=== PATIENT | male | born 1935 | race Caucasian/White ===

== ENCOUNTER 2023-11-07 07:51 | Emergency (ER) | payer MEDICARE, OTHER ==
[2023-11-07 08:11] VITALS: O2SAT 99
--- NOTE | 2023-11-07 08:42 | XRAY Report ---
PROCEDURE: Chest 2 View X-Ray INDICATIONS: Cough TECHNIQUE: 2 views of the chest were acquired. COMPARISON: None. FINDINGS: Surgical changes and devices: None. Lungs and pleura: No pleural effusions or pneumothorax. Left basal patchy opacity may represent atel ectasis, aspiration or pneumonia in the proper clinical setting. Mediastinum: Mediastinal contours appear normal. Heart size is normal. Aortic arch is calcified i ndicating atherosclerosis. Bones and chest wall: No suspicious bony lesions. Overlying soft tissues appear unremarkable. IMPRESSION: Left basal patchy opacity may represent atelectasis, aspiration or pneumonia in the proper clinical s etting. Reviewed by: Jeannie Sandhu MD on 11/07/2023 8:41 AM PST Approved by: Jeannie Sandhu MD on 11/07/2023 8:41 AM PST Station ID: [id number]
[2023-11-07 09:13] LABS: B. PARAPERTUSSIS- RESP PCR PAN NOT DETECTED; B. PERTUSSIS- RESP PCR PANEL NOT DETECTED; C. PNEUMONIAE- RESP PCR PANEL NOT DETECTED; CORONAVIRUS 229E-RESP PCR NOT DETECTED; CORONAVIRUS HKU1-RESP PCR NOT DETECTED; CORONAVIRUS NL63-RESP PCR NOT DETECTED; CORONAVIRUS OC43-RESP PCR NOT DETECTED; HUMAN METAPNEUMOVIRUS NOT DETECTED; INFLUENZA A- RESP PCR PANEL NOT DETECTED; INFLUENZA B - RESP PCR PANEL NOT DETECTED; M. PNEUMONIAE- RESP PCR PANEL NOT DETECTED; PARAINFLUENZA VIRUS 1 NOT DETECTED; PARAINFLUENZA VIRUS 2 NOT DETECTED; PARAINFLUENZA VIRUS 3 NOT DETECTED; PARAINFLUENZA VIRUS 4 NOT DETECTED; RHINOVIRUS/ENTEROVIRUS NOT DETECTED; RSV- RESP PCR PANEL NOT DETECTED; SARS-CoV-2 -RESP PCR PANEL NOT DETECTED
--- NOTE | 2023-11-07 12:06 | ED Physician Documentation ---
History of Present Illness - Stated complaint Stated Complaint: COUGH - Chief complaint Chief Complaint: Resp - History obtained from History obtained from: Patient - History of Present Illness Timing: How many days ago (4) Pain level max: 0 Pain level now: 0 - Additonal information Additional information: 88-year-old male presents to the emergency department with a cough for 4 days. No fevers. No chills. He is bringing up phlegm. He states similar to prior episodes of pneumonia. Does not smoke. No history of lung disease. Does not use inhalers. Is not short of breath. Has not taken a COVID test. Nothing makes it better or worse. No chest pain. No abdominal pain. No nausea, vomiting, diarrhea. Review of Systems Constitutional: denies: Fever, Chills GI: denies: Vomiting, Diarrhea Skin: denies: Rash PD PAST MEDICAL HISTORY - Past Medical History Past Medical History: Yes Cardiovascular: Hypertension, High cholesterol - Past Surgical History Past Surgical History: Yes General: Cholecystectomy - Present Medications Home Medications: Ambulatory Orders Medication Instructions Recorded Confirmed Amox/Clav 875/125 [Augmentin] 1 tab PO Q12H #20 tablet 11/07/23 Azithromycin [Zithromax] 0 mg PO DAILY #6 tablet 11/07/23 - Allergies Allergies/Adverse Reactions: Allergies Allergy/AdvReac Type Severity Reaction Status Date / Time No Known Drug Allergies Allergy Verified 11/07/23 08:10 - Social History Does the pt smoke?: No Smoking Status: Never smoker PD ED PE NORMAL - Vitals Vital signs reviewed: Yes - General General: Alert and oriented X 3, No acute distress - HEENT HEENT: PERRL, Ears normal, Moist mucous membranes - Neck Neck: Supple, no meningeal sign - Cardiac Cardiac: RRR, Strong equal pulses - Respiratory Respiratory: No respiratory distress, Clear bilaterally - Abdomen Abdomen: Soft, Non tender, Non distended - Derm Derm: Warm and dry - Extremities Extremities: No edema, No calf tenderness / cord - Neuro Neuro: Alert and oriented X 3 - Psych Psych: Normal mood, Normal affect Results - Vitals Vitals: Vital Signs - 24 hr 11/07/23 08:08 Temperature 36.5 C Heart Rate 72 Respiratory 15 Rate Blood Pressure 126/81 H O2 Saturation 99 - Labs Labs: Laboratory Tests 11/07/23 08:14 Nasal Adenovirus (PCR) NOT DETECTED Nasal B. parapertussis DNA (PCR) NOT DETECTED Nasal Coronavir 229E PCR NOT DETECTED Nasal Coronavir HKU1 PCR NOT DETECTED Nasal Coronavir NL63 PCR NOT DETECTED Nasal Coronavir OC43 PCR NOT DETECTED Nasal Enterovir/Rhinovir PCR NOT DETECTED Nasal Influenza B PCR NOT DETECTED Nasal Influenza A PCR NOT DETECTED Nasal Parainfluen 1 PCR NOT DETECTED Nasal Parainfluen 2 PCR NOT DETECTED Nasal Parainfluen 3 PCR NOT DETECTED Nasal Parainfluen 4 PCR NOT DETECTED Nasal RSV (PCR) NOT DETECTED Nasal B.pertussis DNA PCR NOT DETECTED Nasal C.pneumoniae (PCR) NOT DETECTED [place] Human Metapneumo PCR NOT DETECTED Nasal M.pneumoniae (PCR) NOT DETECTED Nasal SARS-CoV-2 (PCR) NOT DETECTED - Rads (name of study) Chest x-ray Relevant Findings:: Final report received, See rad report PD Medical Decision Making - ED course Complexity details: reviewed results, re-evaluated patient, considered differential, d/w patient ED course: 88-year-old male with a possible left basilar infiltrate on chest x-ray. Discussed risk and benefits of antibiotics versus watchful waiting as he is not having fevers, difficulty breathing or other symptoms. Discussed the risk of C. difficile colitis. Patient states that he would like to try the antibiotics. Will place him on antibiotics. Patient is well-appearing, nontoxic. Afebrile. No evidence of sepsis. No hypoxia. No respiratory distress. Patient counseled regarding signs and symptoms for which I believe and urgent re- evaluation would be necessary. Patient with good understanding of and agreement to plan and is comfortable going home at this time This document was made in part using voice recognition software. While efforts are made to proofread this document, sound alike and grammatical errors may occur. Departure - Departure Disposition: 01 Home, Self Care Clinical Impression: Pneumonia Qualifiers: Pneumonia type: due to unspecified organism Laterality: left Lung location: lower lobe of lung Qualified Code(s): J18.9 - Pneumonia, unspecified organism Condition: Good Instructions: ED Pneumonia Adult Follow-Up: your,doctor in 1 week [Other] Prescriptions: Amox/Clav 875/125 [Augmentin] 1 tab PO Q12H #20 tablet Azithromycin [Zithromax] 0 mg PO DAILY #6 tablet Comments: Your prescriptions were sent to [facility] [place] in [place]. As we discussed there may be an early pneumonia in your left lung base. We discussed potentially watching and waiting, but you have elected antibiotic therapy at this time. As we discussed there are risks of antibiotic therapy including C. difficile colitis, diarrhea, vomiting and antibiotic resistance. Please take all antibiotics until gone. Please return if you worsen. Your respiratory panel including COVID and flu are negative. Forms: PCP List
[2023-11-07 12:39] VITALS: BP 126/84
== END 2023-11-07 12:36 | disposition home or self-care (01) ==
LOC: ED 07:51
DX: J18.9 Pneumonia, unspecified organism (principal); Z20.822 Contact with and (suspected) exposure to COVID-19; I10 Essential (primary) hypertension
CPT/HCPCS: 87633; 99283; 99284

== ENCOUNTER 2024-04-26 08:22 | Emergency (ER) | payer MEDICARE, OTHER ==
[2024-04-26 08:43] VITALS: O2SAT 99
--- NOTE | 2024-04-26 10:48 | XRAY Report ---
PROCEDURE: Pelvis 1-2V INDICATIONS: groin pain TECHNIQUE: 1 view(s) of the pelvis acquired. COMPARISON: None. FINDINGS: Bones: No fractures or dislocations. No suspicious bony lesions. There is moderate superior joint space narrowing seen involving both hips. There is associated remode ling change, with subchondral sclerosis and osteophyte formation. Note is made of age-appropriate degenerative change of the lower lumbar spine. Soft tissues: Visualized bowel gas pattern is normal. No suspicious soft tissue calcifications. At herosclerotic calcification is seen. IMPRESSION: No acute bony abnormality is seen by plain film. Reviewed by: Ezio Loomis MD on 04/26/2024 9:46 AM ABBY Approved by: Ezio Loomis MD on 04/26/2024 9:46 AM ABBY Station ID: [id number]
--- NOTE | 2024-04-26 10:48 | XRAY Report ---
PROCEDURE: Wrist 3+V LT INDICATIONS: strain pain/swelling L thumb/hand TECHNIQUE: 3 views of the wrist were acquired. COMPARISON: None. FINDINGS: Bones: No fractures or dislocations. No suspicious bony lesions. Age-appropriate degenerative mederos es are seen. Soft tissues: No suspicious soft tissue calcifications or masses. Atherosclerotic calcification is s een. IMPRESSION: No acute bony abnormality can be seen on these plain films. Reviewed by: Ezio Loomis MD on 04/26/2024 9:47 AM ABBY Approved by: Ezio Loomis MD on 04/26/2024 9:47 AM ABBY Station ID: [id number]
--- NOTE | 2024-04-26 11:44 | ED Physician Documentation ---
PD HPI LOWER EXT INJURY - Stated complaint Stated Complaint: ,SWOLLEN HAND - Chief complaint Chief Complaint: Ext Problem - History obtained from History obtained from: Patient, Family () - History of Present Illness PD HPI LOW EXT INJURY LOCATION: Other (right groin and left wrist) Type of injury: Other (kicking the bed sheets of strained the right grion.) Where injury occurred: Home Timing - onset: Last night (299) Timing - duration: Hours Timing - details: Abrupt onset, Still present Improved by: Rest, Immobilization Worsened by: Moving, Palpating Associated symptoms: Swelling (to the left hand and wrist). No: Weakness, Numbness, Tingling Contributing factors: No: Anticoagulated Similar symptoms before: Has not had sx before Recently seen: Not recently seen - Additional information Additional information: Duncan Antoine an 88-year-old who injured his left wrist taking an oil filter off of his lawn tractor. This happened about 1 week ago. He has now developed some swelling to his wrist and pain with movement. Last night he was in bed and went to get out of bed through the sheets off of the bed with his right leg and strained his groin. He is complaining of pain in the right groin that is severe. He is having some trouble walking because of this. He has not done this previously. Review of Systems Constitutional: denies: Fever Respiratory: denies: Cough GI: reports: Constipation. denies: Abdominal Pain, Nausea, Vomiting, Diarrhea : denies: Dysuria PD PAST MEDICAL HISTORY - Past Medical History Past Medical History: Yes Cardiovascular: Hypertension, High cholesterol Respiratory: None Neuro: None - Past Surgical History Past Surgical History: Yes General: Cholecystectomy - Present Medications Home Medications: Ambulatory Orders Medication Instructions Recorded Confirmed Albuterol Sulf [Ventolin Hfa 2 - 3 puffs INH QID 10 Days #1 each 04/07/24 Inhaler] Amox/Clav 875/125 [Augmentin] 1 each PO BID #14 tablet 04/07/24 Lisinopril [Zestril] 10 mg PO DAILY 04/07/24 04/07/24 Ropinirole HCl [Ropinirole ER] 8 mg PO DAILY 04/07/24 04/07/24 Simvastatin [Zocor] 10 mg PO DAILY 04/07/24 04/07/24 Tamsulosin HCl [Flomax] 0.4 mg PO DAILY 04/07/24 04/07/24 HYDROcod/ACETAM 5/325 [[place] 5/325] 1 - 2 tablet PO Q6H PRN #14 tablet 04/26/24 - Allergies Allergies/Adverse Reactions: Allergies Allergy/AdvReac Type Severity Reaction Status Date / Time No Known Drug Allergies Allergy Verified 04/26/24 08:39 - Social History Does the pt smoke?: No Smoking Status: Never smoker Does the pt drink ETOH?: Yes Does the pt have substance abuse?: No PD ED PE NORMAL - Vitals Vital signs reviewed: Yes (normal ) - General General: Alert and oriented X 3, No acute distress, Well developed/nourished - HEENT HEENT: Atraumatic, PERRL, EOMI - Neck Neck: Supple, no meningeal sign, No bony TTP - Respiratory Respiratory: No respiratory distress - Derm Derm: Normal color, Warm and dry - Extremities Extremities: No deformity, Other (There is swelling to the left hand and wrist that is generalized and extends to the distal forearm. There is no significant erythema and there is no blanching. 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 With flexion of the hip the patient does have some pain. He indicates this pain is much less than what he has if he attempts to move the leg by himself.The pain appears to be centered over the ischial tuberosity. Results - Vitals Vitals: Vital Signs - 24 hr 04/26/24 08:33 Temperature 36.7 C Heart Rate 65 Respiratory 16 Rate Blood Pressure 125/72 O2 Saturation 99 Oxygen O2 Source Room air - Rads (name of study) Left wrist Relevant Findings:: Prelim report reviewed (Impression: No acute bony abnormalit y can be seen on these plain films.), EMP independent interpretation of test Pelvis Relevant Findings:: Prelim report reviewed (Impression: No acute bony abnormality seen by plain film.), EMP independent interpretation of test PD Medical Decision Making - ED course Complexity details: reviewed results, re-evaluated patient, considered differential, d/w patient, d/w family ED course: 88-year-old male who has injured his left wrist about 1 week ago appears to have a strain and he is placed into a Velcro wrist splint. He has a second injury to his groin on the right side. He strained his groin enough with pain centered around the ischial tuberosity that I felt necessary to get a film to be certain there was not avulsion. He is expected to recover from this injury over 10 to 14 days. He does have a walker for use at home as he is using a cane now and has injury to his left hand. Departure - Departure Disposition: 01 Home, Self Care Clinical Impression: Strain of right groin Left wrist sprain Qualifiers: Encounter type: initial encounter Qualified Code(s): S63.502A - Unspecified sprain of left wrist, initial encounter Condition: Stable Instructions: ED Sprain Wrist, ED Strain Groin Follow-Up: Willi Cardenas MD [Provider Admit Priv/Credential] - Prescriptions: HYDROcod/ACETAM 5/325 [[place] 5/325] 1 - 2 tablet PO Q6H PRN #14 tablet PRN Reason: Pain Comments: Duncan, today it looks like there are no broken bones in your wrist or pelvis. These musculoskeletal injuries will take at least 10 to 14 days to improve and my recommendation is to wear the wrist splint for comfort and to use your walker at home to assist in walking. The groin strain is particularly painful and I have E scribed some hydrocodone for you to use for pain to the [facility] in [place]. Our expectations with treatment are an improvement. If you have worsening of your symptoms or no improvement follow-up with the orthopedic doctor as indicated. You also may need physical therapy to completely improve and a follow-up with the orthopedic doctor would be indicated for that as well.
[2024-04-26 12:37] VITALS: BP 122/70
== END 2024-04-26 12:32 | disposition home or self-care (01) ==
LOC: ED 08:22
DX: S39.011A Strain of muscle, fascia and tendon of abdomen, initial encounter (principal); S66.912A Strain of unspecified muscle, fascia and tendon at wrist and hand level, left hand, initial encounter; X50.1XXA Overexertion from prolonged static or awkward postures, initial encounter; I10 Essential (primary) hypertension; E78.00 Pure hypercholesterolemia, unspecified; Z79.899 Other long term (current) drug therapy
CPT/HCPCS: 99284